=== PATIENT | male | born 1990 ===

== ENCOUNTER 2019-06-20 19:30 | Outpatient (CLI) | payer BC | END 2019-06-20 19:31 | disposition home or self-care (01) | LOC: SLEEPLAB 19:30 | PROVIDERS: ATTEND Family Medicine | DX: G47.33 Obstructive sleep apnea (adult) (pediatric) (principal); R53.83 Other fatigue; E66.9 Obesity, unspecified; I10 Essential (primary) hypertension; R51 Headache | CPT/HCPCS: 95811 ==